=== PATIENT | female | born 1945 | race Caucasian/White ===

== ENCOUNTER 2021-04-03 11:20 | Emergency (ER) | payer MEDICARE, OTHER, SELFPAY | END 2021-04-03 17:06 | disposition home or self-care (01) | LOC: EXPBETH 17:06 | PROVIDERS: Emergency Provider Nurse Practitioner Family | DX: S09.90XA Unspecified injury of head, initial encounter (principal); W01.198A Fall on same level from slipping, tripping and stumbling with subsequent striking against other object, initial encounter; S01.01XA Laceration without foreign body of scalp, initial encounter | CPT/HCPCS: 90471; 90715; 99203; G0463 ==